=== PATIENT | male | born 1930 | race Caucasian/White ===

== ENCOUNTER 2019-11-30 19:54 | Emergency (ER) | payer OTHER, MEDICARE ==
[~2019-11-30] VITALS: Ht 177.8 cm; Wt 63.5 kg
== END 2019-11-30 22:59 | disposition home or self-care (01) ==
LOC: ER 19:54
DX: B02.9 Zoster without complications (principal)
CPT/HCPCS: 99283

== ENCOUNTER 2020-02-04 12:48 | Inpatient (IN) | payer OTHER, MEDICARE ==
[~2020-02-04] VITALS: Ht 177.8 cm; Wt 67.5 kg
[2020-02-04 13:05] LABS: Calcium, Ionized (POC) 1.09 mmol/L (1.10-1.46); Chloride (POC) 102 mmol/L (98-108); Creatinine (POC) 0.9 mg/dL (0.8-1.3); Glucose (ISTAT POC) 135 mg/dL (70-99); Hemoglobin (POC) 13.3 g/dL (13.5-17.5); Potassium (POC) 4.3 mmol/L (3.5-5.5); Sodium (POC) 136 mmol/L (135-148); Total CO2 (POC) 28 mmol/L (21-32)
[2020-02-04 13:14] LABS: Hematocrit 40.9 % (37.0-53.0); Hemoglobin 13.6 g/dL (13.5-17.5); Mean Corpuscular HGB 34.7 pg (26.0-34.0); Mean Corpuscular HGB Conc 33.3 g/dL (31.5-36.5); Mean Corpuscular Volume 104 fL (80-100); Mean Platelet Volume 9.2 fL (9.1-12.4); Platelet Count 123 K/mm3 (150-400); RDW Coefficient Variation 12.7 % (11.7-14.2); RDW Standard Deviation 49.4 fL (35.1-46.3); Red Blood Cell Count 3.92 M/mm3 (4.30-5.90); White Blood Cell Count 6.55 K/mm3 (4.00-11.30)
[2020-02-04 13:42] LABS: Alanine Aminotransfer (ALT/SGP 23 U/L (12-78); Albumin, Blood 3.1 g/dL (3.4-5.0); Albumin/Globulin Ratio 0.9 (0.8-1.8); Alk Phos 42 U/L (50-136); Anion Gap 6 mmol/L (6-16); Aspartate Aminotrans (AST/SGOT 21 U/L (12-37); Bilirubin, Total 0.3 mg/dL (0.1-1.0); Blood Urea Nitrogen 19 mg/dL (8-24); Bun/Creatinine Ratio 20.1 (12.0-20.0); CHOL/HDL RATIO 2.3; CO2, Blood 30 mmol/L (21-32); Calcium, Blood 8.5 mg/dL (8.5-10.1); Chloride, Blood 104 mmol/L (98-108); Cholesterol 156 mg/dL (50-200); Creatinine, Blood 0.94 mg/dL (0.60-1.20); Globulin, Blood 3.3 g/dL (2.2-4.0); Glomerular Filtration Rate >60 (60-); Glucose, Blood 129 mg/dL (70-99); HDL Cholesterol 68 mg/dL (>39); LDL/HDL RATIO 1.1; Low Density Lipoprotein Chol 72 mg/dL (0-110); Magnesium, Blood 2.1 mg/dL (1.6-2.4); Potassium, Blood 4.3 mmol/L (3.5-5.5); Sodium, Blood 140 mmol/L (136-145); Total Protein, Blood 6.4 g/dL (6.4-8.2); Triglycerides 78 mg/dL (30-160); Troponin I 0.119 ng/mL (0.000-0.040); Very Low Density Lipoprot Chol 15 mg/dL (6-32)
[2020-02-04] MEDS ORDERED: GABA300 PO ×2 (15:35→15:36)
[2020-02-04] MEDS ORDERED: PRED FORTE5 M1 LEFTEYE (15:46)
[2020-02-04] MEDS ORDERED: B-COMPLEX WITH1 EAC2 PO (15:47)
[2020-02-04] MEDS ORDERED: ABAT250V (15:48)
--- NOTE | 2020-02-04 16:33 | NUR ---
1445 PT ADMITTED VIA BED TO ICU-6. PT A/O, DENIES PAIN OR DISTRESS CURRENTLY. SR WTIH BBB. IV SITES BILATERALLY AND NS AT 200ML TIMES 500ML TO FOLLOW. ECHO IS IN PROGRESS. PT DAUGHTER HAS CALLED IN AND WILL F/U WITH STATUS REPORT.
--- NOTE | 2020-02-04 18:43 | NUR ---
1730 FIRST ATTEMPT TO DEFLATE TR CUFF WAS MADE AND FULLY DEFLATED BUT SUSPECTED HEMATOMA WAS NOTED. RE-INFLATED TO ONLY 8ML AT TR FROM ORIGIANL 12ML AND SITE IS STABLE. SEE MED LIST. PT DENIES PAIN BUT CONTINUES TO BURP AND FEEL RELIEF WELL PASS GAS. PT VS NOTED. SET UP TO EAT SUPPER AND FED SELF WITH FINGER FOODS. NS BOLUS COMPLETE. PT REMAINS SR WITH BBB. WILL REPORT TR TO NOC SHIFT TO ATTEMPT TO DEFLATE. I/O NOTED.
--- NOTE | 2020-02-04 19:05 | NUR ---
RECIEVED BEDSIDE REPORT FORM DELIO, OFF GOING RN. MONITOR INTACT SHOWING SINUS RHYTHM. HEART RATE 84. TR BAND IN PLACE. 8CC AIR IN BAND SITE CLEAR NON TENDER. LUNGS SOUNDS CLEAR WITH DECREASED SOUNDS IN BASES. RESPIRATIONS REGULAR AND EASY ON ROOM AIR SPO2 96-98% ABDOMEN SOFT WITH BOWEL SOUNDS FOUR QUADS. VOIDS NICOLASA URINE PER UNINAL. PASSING FLATUS . CO FACIAL NUMBNESS/TINGLING STATES " IT'S BEEN THERE SINCE I HAD THE SHINGLES IN MY EYE. CONTINUE TO MONITOR AND REPORT CHANGE IN PATIENT CONDITION.
[2020-02-05 03:48] LABS: BASOPHILS ABSOLUTE AUTO 0.01 K/mm3 (0.00-0.23); BASOPHILS PERCENT AUTO 0 % (0-2); EOSINOPHILS ABSOLUTE AUTO 0.05 K/mm3 (0.00-0.68); EOSINOPHILS PERCENT AUTO 1 % (0-6); Hematocrit 39.9 % (37.0-53.0); Hemoglobin 13.2 g/dL (13.5-17.5); IMMATURE GRAN ABSOLUTE AUTO 0.02 K/mm3 (0.00-0.10); IMMATURE GRAN PERCENT AUTO 0 % (0-1); LYMPHOCYTES ABSOLUTE AUTO 0.72 K/mm3 (0.84-5.20); LYMPHOCYTES PERCENT AUTO 9 % (21-46); MONOCYTES ABSOLUTE AUTO 0.68 K/mm3 (0.16-1.47); MONOCYTES PERCENT AUTO 8 % (4-13); Mean Corpuscular HGB 34.1 pg (26.0-34.0); Mean Corpuscular HGB Conc 33.1 g/dL (31.5-36.5); Mean Corpuscular Volume 103 fL (80-100); Mean Platelet Volume 9.1 fL (9.1-12.4); NEUTROPHILS PERCENT AUTO 82 % (41-73); Platelet Count 155 K/mm3 (150-400); RDW Coefficient Variation 12.9 % (11.7-14.2); RDW Standard Deviation 49.7 fL (35.1-46.3); Red Blood Cell Count 3.87 M/mm3 (4.30-5.90); White Blood Cell Count 8.08 K/mm3 (4.00-11.30)
[2020-02-05 04:05] LABS: Anion Gap 5 mmol/L (6-16); Blood Urea Nitrogen 14 mg/dL (8-24); Bun/Creatinine Ratio 16.9 (12.0-20.0); CO2, Blood 28 mmol/L (21-32); Calcium, Blood 8.2 mg/dL (8.5-10.1); Chloride, Blood 106 mmol/L (98-108); Creatinine, Blood 0.83 mg/dL (0.60-1.20); Glomerular Filtration Rate >60 (60-); Glucose, Blood 113 mg/dL (70-99); Potassium, Blood 4.1 mmol/L (3.5-5.5); Sodium, Blood 139 mmol/L (136-145)
--- NOTE | 2020-02-05 06:28 | NUR ---
SHIFT SUMMARY : RESTSQUIETLY WHEN UNDISTURBED MONITOR INTACT SHOWING SINUS RHYTHM WITH BUNDLE BRANCH BLOCK HEART RATE 80'S. DENIES DISCOMFORT LUNG SOUNDS CLEAR RESPIRATIONS REGULAR AND EASY. SP2 94-98% ABDOMEN SOFT WITH BOWEL SOUNDS FOUR QUADS VOIDS NICOLASA URINE PER URINAL. TR BAND SITE CLEAR CONTINUE TO MONITOR AND REPORT CHANGE IN PATIENT CONDITION
[2020-02-05] MEDS ORDERED: ASPI81CH PO (11:16)
[2020-02-05] MEDS ORDERED: CLOP75 PO (11:17)
[2020-02-05] MEDS ORDERED: ATOR20 PO (11:17)
--- NOTE | 2020-02-05 12:28 | NUR ---
PT ASSESED BY MD-DISCHARGE ORDERS GIVEN. PT UP OUT OF BED AMBULATED WELL IN ROOM, DENIES PAIN, N/V, SOB. UP AND DRESSED GIVEN DISCHARGE INSTRUCTIONS, PT VERBALIZED AN UNDERSTANDING OF INSTRUCTIONS. PT TAKEN TO WAITING FAMILY VIA W/C @1202PM
== END 2020-02-05 12:21 | disposition home or self-care (01) | DRG 247 ==
LOC: ER 12:48 → ICUE 13:12 → ICUW 13:12 → ICUE 14:13
PROVIDERS: Emergency Medicine; ADMIT Internal Medicine Interventional Cardiology
PROC: 4A023N7 Measurement of Cardiac Sampling and Pressure, Left Heart, Percutaneous Approach (ICD-10-PCS; principal; 2020-02-04)
PROC: 027135Z Dilation of Coronary Artery, Two Arteries with Two Drug-eluting Intraluminal Devices, Percutaneous Approach (ICD-10-PCS; 2020-02-04)
PROC: 02713ZZ Dilation of Coronary Artery, Two Arteries, Percutaneous Approach (ICD-10-PCS; 2020-02-04)
PROC: B2111ZZ Fluoroscopy of Multiple Coronary Arteries using Low Osmolar Contrast (ICD-10-PCS; 2020-02-04)
DX: I21.3 ST elevation (STEMI) myocardial infarction of unspecified site (principal); I10 Essential (primary) hypertension; E78.5 Hyperlipidemia, unspecified
CPT/HCPCS: 36415; 76937; 80047; 80048; 80053; 80061; 83735; 84484; 85014; 85025; 85027; 85347; 86850; 86900; 86901; 92978; 93005; 93010; 93306; 93454; 99152; 99153; 99285-25; A9270; A9270-GY; C1725; C1753; C1769; C1874; C1887; C1894; C9600; C9601; C9606; J1644; J2250; J3010; J3475; J7030; J7040; Q9967